=== PATIENT | male | born 1965 | race Caucasian/White ===

== ENCOUNTER → 2022-10-19 16:09 | Outpatient (BNVA) | payer BC, SELFPAY | PROVIDERS: PCP Internal Medicine; Visit Provider Psychiatry & Neurology Psychiatry ==

== ENCOUNTER 2023-03-16 17:05 | Outpatient (AMB) | payer BC, SELFPAY ==
--- NOTE | 2023-03-16 16:08 | A.OFFPSYCH_ITS ---
Intake Intake Visit Reasons: Depression Allergies shellfish derived Allergy (Unknown, Verified 10/20/22 13:16) puffy throat HPI- Psychiatric Chief Complaint: Depression HPI Narrative: Pt seen in f/u had recent appt with oncologist things generally have been going well he is on an oral form of chemotherapy. 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 Sleep okay no panic attacks able to enjoy things functions well Past Psychiatric History: hx recurrent depression Mental Status Exam Mental Status Exam Narrative: Mental Status Exam Narrative: Appearance: Casually dressed Behavior: Cooperative appropriate psychomotor: Within normal limits Speech: Normal volume and prosody Thought proccess logical and goal-directed Thought content: Future oriented no self-harming thoughts Mood: Euthymic Affect: Appropriate to mood full affect SI:denies HI:denies VH/AH:none Delusions: None Insight/judgment: Good insight and judgment Memory/cog: Intact Telehealth Telehealth Location of provider rendering services: practice address Location of patient: address on file Patient Identification confirmed using: Name, : Yes Telehealth method: video Patient verbally consented to treatment: Yes Patient informed of any privacy concerns related to visit: Yes Minutes spent on Phone/Video with Pt.: 15 Assessment and Plan Assessment & Plan (1) Major depressive disorder, recurrent, in remission, unspecified: Status: Acute Code(s): F33.40 - Major depressive disorder, recurrent, in remission, unspecified (2) CLL (chronic lymphocytic leukemia): Status: Acute Code(s): C91.10 - Chronic lymphocytic leukemia of B-cell type not having achieved remission Plan Continue Effexor 75 mg patient generally stable no relapse symptoms follow-up 4- 6 months patient call if needed Medications: Refilled venlafaxine ER (Effexor XR) 75 mg PO DAILY 90 caps 1RF Counseling and coordination of Care Diagnosis and Prognosis Counseling: Prognosis over time and Adequacy of current interventions Details: I spent [15] minutes reviewing the record, seeing the patient and documenting in the medical record. Counseling provided to the patient/caregiver as outlined below. Addressed patient/caregiver concerns regarding current medication regime including effective adherence. Addressed patient/caregiver concerns regarding diagnosis and prognosis including accuracy of diagnosis, prognosis over time, impact of diagnosis. Addressed patient/caregiver concerns regarding impact of recent stressors. [facility] Medical History (Updated 10/19/22 @ 16:58 by Laurent Bustamante MD) CLL (chronic lymphocytic leukemia) Coding Level of Care Code Tele Est Pt Level 3 (87405) Diagnoses Major depressive disorder, recurrent, in remission, unspecified F33.40 CLL (chronic lymphocytic leukemia) C91.10
== END 2023-03-16 17:06 | disposition home or self-care (01) ==
LOC: HO.HOP 17:05
PROVIDERS: PCP Internal Medicine; Visit Provider Psychiatry & Neurology Psychiatry
DX: F33.40 Major depressive disorder, recurrent, in remission, unspecified (principal); C91.10 Chronic lymphocytic leukemia of B-cell type not having achieved remission
CPT/HCPCS: 99213

== ENCOUNTER → 2023-03-16 17:05 | Outpatient (BNVA) | payer BC, SELFPAY | PROVIDERS: PCP Internal Medicine; Visit Provider Psychiatry & Neurology Psychiatry ==

== ENCOUNTER 2023-08-22 15:57 | Outpatient (AMB) | payer BC, SELFPAY ==
--- NOTE | 2023-08-22 14:46 | MHC.OFFVISPS ---
Intake Intake Visit Reasons: depression Allergies shellfish derived Allergy (Unknown, Verified 10/20/22 13:16) puffy throat Medication List - Last Reconciled 08/22/23 by Laurent Bustamante MD acalabrutinib maleate (Calquence (acalabrutinib maleate)) mg PO venlafaxine ER (Effexor XR) 75 mg PO DAILY HPI- Psychiatric Chief Complaint: depression HPI Narrative: Pt is a 58 yo male on calquence has been maint electrician shop no panic no serious depressive episodes has CLL has been doing ok with calquence no side effects with effexor had recent bout of grief after of f in law but generally stable able to enjoy things extensive friend and family supports and rastafarian supports. Tries to not let CLL intrude on his daily mental health and has been reassured by his response to Calquence Past Psychiatric History: hx recurrent depression Mental Status Exam Mental Status Exam Narrative: Mental Status Exam Narrative: Appearance: Casually dressed Behavior: Cooperative appropriate psychomotor: Within normal limits Speech: Normal volume and prosody Thought proccess logical and goal-directed Thought content: Future oriented no self-harming thoughts Mood: Euthymic Affect: Appropriate to mood full affect SI:denies HI:denies VH/AH:none Delusions: None Insight/judgment: Good insight and judgment Memory/cog: Intact Telehealth Telehealth Location of provider rendering services: practice address Location of patient: address on file Patient Identification confirmed using: Name, : Yes Telehealth method: video Patient verbally consented to treatment: Yes Patient informed of any privacy concerns related to visit: Yes Minutes spent on Phone/Video with Pt.: 20 Assessment and Plan Assessment & Plan (1) Major depressive disorder, recurrent, in remission, unspecified: Status: Acute Code(s): F33.40 - Major depressive disorder, recurrent, in remission, unspecified (2) CLL (chronic lymphocytic leukemia): Status: Acute Code(s): C91.10 - Chronic lymphocytic leukemia of B-cell type not having achieved remission Plan Continue plan of care patient stable continue Effexor no significant side effects has had prior significant depressions not easily responding to medication maintain current treatment plan Medications: Refilled venlafaxine ER (Effexor XR) 75 mg PO DAILY 90 caps 1RF venlafaxine ER (Effexor XR) 75 mg PO DAILY 90 caps 1RF Counseling and coordination of Care Details: I spent [25] minutes reviewing the record, seeing the patient and documenting in the medical record. Counseling provided to the patient/caregiver as outlined below. Addressed patient/caregiver concerns regarding current medication regime including effective adherence. Addressed patient/caregiver concerns regarding diagnosis and prognosis including accuracy of diagnosis, prognosis over time, impact of diagnosis. Addressed patient/caregiver concerns regarding impact of recent stressors. [facility] Medical History (Updated 10/19/22 @ 16:58 by Laurent Bustamante MD) CLL (chronic lymphocytic leukemia) Coding Level of Care Code Est Pt Level 4 (21589) Diagnoses Major depressive disorder, recurrent, in remission, unspecified F33.40 CLL (chronic lymphocytic leukemia) C91.10
== END 2023-08-22 15:58 | disposition home or self-care (01) ==
LOC: HO.HOP 15:57
PROVIDERS: PCP Internal Medicine; Visit Provider Psychiatry & Neurology Psychiatry
DX: F33.40 Major depressive disorder, recurrent, in remission, unspecified (principal); C91.10 Chronic lymphocytic leukemia of B-cell type not having achieved remission
CPT/HCPCS: 99214

== ENCOUNTER → 2023-08-22 15:57 | Outpatient (BNVA) | payer BC, SELFPAY | PROVIDERS: PCP Internal Medicine; Visit Provider Psychiatry & Neurology Psychiatry ==

== ENCOUNTER 2024-05-20 14:30 | Outpatient (AMB) | payer BC, SELFPAY ==
--- NOTE | 2024-05-20 14:55 | A.OFFPSYCH_ITS ---
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 Patient without relapse symptoms continues on Effexor 75 mg daily no complaints of side effects denies breakthrough symptoms. Has been taking medication for CLL which has stabilized with oral medication Past Psychiatric History: hx recurrent depression Mental Status Exam Mental Status Exam Narrative: Mental Status Exam Narrative: Appearance: Casually dressed Behavior: Cooperative appropriate psychomotor: Within normal limits Speech: Normal volume and prosody Thought proccess logical and goal-directed Thought content: Future oriented focused on treatment issues gratitude for support he gets in his life Mood: Euthymic Affect: Appropriate to mood full affect SI:denies HI:denies VH/AH:none Delusions: None Insight/judgment: Good insight and judgment Memory/cog: Intact Assessment and Plan Assessment & Plan (1) Major depressive disorder, recurrent, in remission, unspecified: Status: Acute Code(s): F33.40 - Major depressive disorder, recurrent, in remission, unspecified Plan Continue plan of care patient has been stable on venlafaxine discussed possible transition at some to PCP. Patient has had severe anxious depressions in the past Medications: Refilled venlafaxine ER 75 mg PO DAILY 90 caps 1RF venlafaxine ER (Effexor XR) 75 mg PO DAILY 90 caps 1RF Counseling and coordination of Care Details-Self Mgmt counseling: Issues related to history of depression and dealing with chronic stress of CLL ways he has to manage Details: I spent [30] minutes reviewing the record, seeing the patient and documenting in the medical record. Counseling provided to the patient/caregiver as outlined below. Addressed patient/caregiver concerns regarding current medication regime including effective adherence. Addressed patient/caregiver concerns regarding diagnosis and prognosis including accuracy of diagnosis, prognosis over time, impact of diagnosis. Addressed patient/caregiver concerns regarding impact of recent stressors. [facility] Medical History (Updated 10/19/22 @ 16:58 by Laurent Bustamante MD) CLL (chronic lymphocytic leukemia) Coding Level of Care Code Est Pt Level 4 (76776) Diagnoses Major depressive disorder, recurrent, in remission, unspecified F33.40
== END 2024-05-20 15:16 | disposition home or self-care (01) ==
LOC: HO.HOP 14:30
PROVIDERS: PCP Internal Medicine; Visit Provider Psychiatry & Neurology Psychiatry
DX: F33.40 Major depressive disorder, recurrent, in remission, unspecified (principal)
CPT/HCPCS: 99214

== ENCOUNTER → 2024-05-20 14:30 | Outpatient (BNVA) | payer BC, SELFPAY | PROVIDERS: PCP Internal Medicine; Visit Provider Psychiatry & Neurology Psychiatry ==

== ENCOUNTER 2024-10-28 14:11 | Outpatient (AMB) | payer BC, SELFPAY ==
--- NOTE | 2024-10-28 14:38 | A.OFFPSYCH_ITS ---
Intake Intake Visit Reasons: depression Allergies shellfish derived Allergy (Unknown, Verified 10/20/22 13:16) puffy throat HPI- Psychiatric Chief Complaint: depression HPI Narrative: Pt seen in f/u continues to work no ongoing fatigue has put in a n ew pool d wedding in july has been working out 3 x wk has new above grnd pool has grandkids 6-2 yo enjoys family time. Pt has been doing well generally on effexor. 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 Past Psychiatric History: hx recurrent depression Mental Status Exam Mental Status Exam Narrative: Mental Status Exam Narrative: Appearance: Casually dressed Behavior: Cooperative appropriate psychomotor: Within normal limits Speech: Normal volume and prosody Thought proccess logical and goal-directed Thought content: Future oriented focused on treatment issues gratitude for support he gets in his life Mood: Euthymic Affect: Appropriate to mood full affect SI:denies HI:denies VH/AH:none Delusions: None Insight/judgment: Good insight and judgment Memory/cog: Intact Assessment and Plan Assessment & Plan (1) Major depressive disorder, recurrent, in remission, unspecified: Status: Acute Code(s): F33.40 - Major depressive disorder, recurrent, in remission, unspecified (2) CLL (chronic lymphocytic leukemia): Status: Acute Code(s): C91.10 - Chronic lymphocytic leukemia of B-cell type not having achieved remission Plan No breakthroughs of any kind pt quite stable dealing well with cancer diagnosis social engaged patient stable on current regimen 75 mg venlafaxine no breakthrough continue plan of care . Has had severe agitated depression in the past Counseling and coordination of Care Details: I spent [] minutes reviewing the record, seeing the patient and documenting in the medical record. Counseling provided to the patient/caregiver as outlined below. Addressed patient/caregiver concerns regarding current medication regime including effective adherence. Addressed patient/caregiver concerns regarding diagnosis and prognosis including accuracy of diagnosis, prognosis over time, impact of diagnosis. Addressed patient/caregiver concerns regarding impact of recent stressors. [facility] Medical History (Updated 10/19/22 @ 16:58 by aLurent Bustamante MD) CLL (chronic lymphocytic leukemia) Coding Level of Care Code Est Pt Level 3 (01681) Diagnoses Major depressive disorder, recurrent, in remission, unspecified F33.40 CLL (chronic lymphocytic leukemia) C91.10
--- OUTSIDE RECORDS SUMMARY | 2024-10-28 16:06 | XMS_ITS | Clinical Summary ---
Author Organization [facility] [place] [address] Care Team Providers Care Data Communications Technician Name Role Phone Anna Marie Osman MD Primary Care Provider [phone] Allergies Active Allergy Reactions Criticality Noted Date Comments Bee Venom Protein (Honey Bee) 2021 Shellfish Derived 11/03/2021 Medications venlafaxine XR (EFFEXOR-XR) 75 mg 24 hr capsule Take 1 capsule (75 mg total) by mouth 1 (one) time each day. Do not crush or chew. Active acalabrutinib (Calquence) 100 mg Take 1 capsule (100 mg total) by mouth every 12 (twelve) hours 60 capsule 1 3 Active clobetasoL (TEMOVATE) 0.05 % cream Apply topically 2 (two) times a day. 3 Active acalabrutinib maleate (Calquence, acalabrutinib mal,) 100 mg tablet Take 1 tablet (100 mg total) by mouth every 12 (twelve) hours 60 tablet 5 5 Active Active Problems Problem Noted Date Diagnosed Date Bruising 06/19/2023 Altered taste 12/15/2021 Other fatigue 12/15/2021 CLL (chronic lymphocytic rubia kemia) (CMS/HCC V24, CMS/HCC V28) 11/11/2021 Infected sebaceous cyst 11/11/2021 Cervical lymphadenopathy 11/11/2021 Acute midline low back pain with bilateral sciat ica 11/11/2021 Anemia in neoplastic disease 11/11/2021 Generalized lymphadenopathy 11/11/2021 Leg cramps 11/11/2021 Anxiety 11/11/2021 Lymphoma, small lymphocytic (CMS/HCC V24, [facility]/ C V28) 11/11/2021 Night sweats 11/11/2021 Skin rash 11/11/2021 Weight loss 11/11/2021 COVID-19 11/11/2021 Smoker 11/11/2021 Encounters Date Type Department Care Team Description 08/14/2024 3:15 PM EDT Office Visit [facility] Hematology Oncology [address] [place] [address] Curry Grover MD CLL (chronic lymphocytic leukemia) ([facility] V24, [facility] V28) (Primary Dx) from Last 3 Months Surgical History Surgery Date Site/Laterality Comments APPENDECTOMY PROCEDURE:APPENDECTOMY VASECTOMY PROCEDURE:VASECTOMY COLONOSCOPY PROCEDURE:COLONOSCOPY Medical History Medical History Date Comments Chronic lymphocytic leukemia ([facility] V24, [facility] V28) DX:Chronic lymphocytic [facility] killian (HCC) Elevated WBCs DX:Elevated WBCs Family History Medical History Relation Name Comments Cancer Father Relation Name Status Comments Father Social History Tobacco Use Types Packs/Day Years Used Date Smoking Tobacco: Every Day Cigarettes Smokeless Tobacco: Never Tobacco Cessation:Ready to Q uit: Not Asked; Counseling Given: Not Answered Alcohol Use Standard Drinks/Week Comments Yes 0 (1 standard drink = 0.6 oz pur e alcohol) Sex and Gender Information Value Date Recorded Sex Assigned at Not on file Legal Sex Male 12:59 PM EDT Gender Identity Not on file Sexual Orientation Not on file Obstetrics History Last Filed Vital Signs Vital Sign Reading Time Taken Comments Blood Pressure 107/69 08/14/2024 3:06 PM EDT Pulse 89 08/14/2024 3:06 PM EDT Temperature 36.7 ??C (98.1 ??F) 08/14/2024 3:06 PM ED T Respiratory Rate - - Oxygen Saturation 97% 08/14/2024 3:06 PM EDT Inhaled Oxygen Concentration - - Weight 66.8 kg (147 lb 3.2 oz) 08/14/2024 3:06 P M EDT Height 167.6 cm (5' 6 ) 09/20/2023 3:42 PM EDT Body Mass Index 23.76 09/20/2023 3:42 PM EDT Plan of Treatment Upcoming Encounters Date Type Department Care Team (Late st Contact Info) Description 11/14/2024 3:45 PM EDT Office Visit [facility] Hematology Oncology [address] [place] [address] Curry Grover MD [address] [place] [address] Health Maintenance Due Date Last Done Comments Pneumococcal Vaccine: 50+ Ye ars (1 of 2 - PCV) 02/19/1983 Pneumococcal Vaccine: Pediat rics (0 to 5 Years) and At-Risk Patients (6 to 64 Years) (1 of 2 - PCV) 02/19/1983 Zoster Vaccines (1 of 2) 02/19/1983 COVID-19 Vaccine (2 - Pfizer risk series) 10/12/2020 09/21/2020 Cholesterol Screening (Lipid Panel) 11/02/2021 Colorectal Cancer Screening: Colonoscopy 11/02/2021 Depression Screening 11/02/2021 HIV Screening 11/02/2021 Hepatitis C Screening 11/02/2021 Social Influencers of Health Screening 11/02/2021 RSV Immunization Adult Patie nts (1 - Risk 60-74 years 1-dose series) 2024 Influenza Vaccine (Season Ended) 2025 02/14/20 DTaP,Tdap,and Td Vaccines (2 - Td or Tdap) 01/28/2029 01/28/2019 HIB Vaccines Aged Out No longer eligi ble based on patient's age to complete this topic HPV Vaccines Aged Out No longer eligi ble based on patient's age to complete this topic Hepatitis A Vaccines Aged Out No long er eligible based on patient's age to complete this topic Hepatitis B Vaccines Aged Out No long er eligible based on patient's age to complete this topic IPV Vaccines Aged Out No longer eligi ble based on patient's age to complete this topic MMR Vaccines Aged Out No longer eligi ble based on patient's age to complete this topic Meningococcal ACWY Vaccine Aged Out N o longer eligible based on patient's age to complete this topic Meningococcal B Vaccine Aged Out No l onger eligible based on patient's age to complete this topic RSV Immunization Patients Un vikki 20 months Aged Out No longer eligible b ased on patient's age to complete this topic Varicella Vaccines Aged Out No longer eligible based on patient's age to complete this topic Procedures Procedure Name Priority Date/Time Associated Diagnosis Comments CBC WITH AUTO DIFFERENTIAL Routine 09/19/2024 3:12 PM EDT CLL (chronic lymphocytic leukemia) (CMS/HCC V24, CMS/HCC V28) CBC AND DIFFERENTIAL Routine 09/19/2024 3:12 PM EDT CLL (chronic lymphocytic leukemia) (CMS/HCC V24, CMS/HCC V28) COMPREHENSIVE METABOLIC PANEL Routine 09/19/2024 3:12 PM EDT CLL (chronic lymphocytic leukemia) (CMS/HCC V24, CMS/HCC V28) LACTATE DEHYDROGENASE Routine 09/19/2024 3:12 PM EDT CLL (chronic lymphocytic leukemia) (CMS/HCC V24, CMS/HCC V28) IMMUNOGLOBULIN IGG Routine 09/19/2024 3: 12 PM EDT CLL (chronic lymphocytic leukemia) (CMS/HCC V24, CMS/HCC V28) MANUAL DIFFERENTIAL - SYSMEX WAM Routine 08/09/2024 2:59 PM EDT CLL (chronic lymphocytic leukemia) (CMS/HCC V24, CMS/HCC V28) CBC WITH AUTO DIFFERENTIAL Routine 08/09/2024 2:59 PM EDT CLL (chronic lymphocytic leukemia) (CMS/HCC V24, CMS/HCC V28) CBC AND DIFFERENTIAL Routine 08/09/2024 2:59 PM EDT CLL (chronic lymphocytic leukemia) (CMS/HCC V24, CMS/HCC V28) COMPREHENSIVE METABOLIC PANEL Routine 08/09/2024 2:59 PM EDT CLL (chronic lymphocytic leukemia) (CMS/HCC V24, CMS/HCC V28) LACTATE DEHYDROGENASE Routine 08/09/2024 2:59 PM EDT CLL (chronic lymphocytic leukemia) (CMS/HCC V24, CMS/HCC V28) IMMUNOGLOBULIN IGG Routine 08/09/2024 2: 59 PM EDT CLL (chronic lymphocytic leukemia) ([facility] V24, [facility] V28) from Last 3 Months Results * (ABNORMAL) CBC auto differential (09/19/2024 3:12 PM EDT) Only the most recent of2 resultswithin the time period is included. WBC 57.1(HH) 4.8 - 10.8 K/mcL LAB [facility] RBC 4.50 4.50 - 5.50 M/mcL LAB HEMETOLOGY METHOD 09/19/2024 8:42 PM [facility] Hemoglobin 13.0(L) 13.5 - 17.5 g/dL LAB HEMETOLOGY METHOD 09/19/2024 8:42 PM [facility] Hematocrit 40.2(L) 42.0 - 54.0 % LAB HEMETOLOGY METHOD 09/19/2024 8:42 PM [facility] MCV 90.3 79.0 - 98.0 FL LAB HEMETOLOGY METHOD 09/19/2024 8:42 PM [facility] MCH 29.2 27.0 - 32.0 pcg LAB HEMETOLOGY METHOD 09/19/2024 8:42 PM [facility] MCHC 32.3 32.0 - 37.0 g/dL LAB HEMETOLOGY METHOD 09/19/2024 8:42 PM [facility] RDW 14.2 11.0 - 15.0 % LAB HEMETOLOGY METHOD 09/19/2024 8:42 PM [facility] Platelets 273 130 - 400 K/mcL LAB HEMETOLOGY METHOD 09/19/2024 8:42 PM [facility] MPV 10.1 7.0 - 11.0 FL LAB HEMETOLOGY METHOD 09/19/2024 8:42 PM [facility] NRBC 0.0 <1.0 % LAB HEMETOLOGY METHOD 09/19/2024 8:42 PM [facility] NRBC Absolute 0.00 <0.10 K/mcL LAB HEMETOLOGY METHOD 09/19/2024 8:42 PM [facility] Neutrophils Relative 9.7 % LAB HEMETOLOGY METHOD 09/19/2024 8:42 PM [facility] Comment:This is an appended report. These results have been appended to a previously preliminary verified report. Lymphocytes Relative 85.2 % LAB HEMETOLOGY METHOD 09/19/2024 8:42 PM [facility] Comment:This is an appended report. These results have been appended to a previously preliminary verified report. Monocytes Relative 3.9 % LAB HEMETOLOGY METHOD 09/19/2024 8:42 PM [facility] Comment:This is an appended report. These results have been appended to a previously preliminary verified report. Eosinophils Relative 0.5 % LAB HEMETOLOGY METHOD 09/19/2024 8:42 PM [facility] Comment:This is an appended report. These results have been appended to a previously preliminary verified report. Basophils Relative 0.4 % LAB HEMETOLOGY METHOD 09/19/2024 8:42 PM [facility] Comment:This is an appended report. These results have been appended to a previously preliminary verified report. Immature Granulocytes Relative 0.3 % LAB HEMETOLOGY METHOD 09/19/2024 8:42 PM [facility] Comment:This is an appended report. These results have been appended to a previously preliminary verified report. Neutrophils Absolute 5.57 1.50 - 7.00 K/mcL LAB HEMETOLOGY METHOD 09/19/2024 8:42 PM [facility] Comment:This is an appended report. These results have been appended to a previously preliminary verified report. Lymphocytes Absolute 48.65(H) 1.00 - 5.00 K/mcL LAB HEMETOLOGY METHOD 09/19/2024 8:42 PM EDT [facility] Comment:This is an appended report. These results have been appended to a previously preliminary verified report. Monocytes Absolute 2.25(H) 0.20 - 1.00 K/mcL LAB [facility] 09/19/2024 8:42 PM EDT [facility] Comment:This is an appended report. These results have been appended to a previously preliminary verified report. Eosinophils Absolute 0.26 0.00 - 0.50 K/mcL LAB [facility] 09/19/2024 8:42 PM EDT [facility] Comment:This is an appended report. These results have been appended to a previously preliminary verified report. Basophils Absolute 0.23(H) 0.00 - 0.20 K/[facility] 09/19/2024 8:42 PM EDT [facility] Comment:This is an appended report. These results have been appended to a previously preliminary verified report. Immature Granulocytes Absolute 0.15(H) 0.00 - 0.03 K/[facility] 09/19/2024 8:42 PM EDT [facility] Comment:This is an appended report. These results have been appended to a previously preliminary verified report. Blood Venous blood specimen / Unknown Venipuncture / Unknown 09/19/2024 3:12 PM EDT 09/19/2024 4:36 PM EDT us Curry Grover MD LAB BLOOD ORDERABLE S Final Result [facility] [address] [place] [address], * Lactate dehydrogenase (09/19/2024 3:12 PM EDT) Only the most recent of2 resultswithin the time period is included. LDH 123 120 - 246 unit/L LAB CHEMISTRY METHOD 09/19/2024 5:51 PM EDT [facility] Blood Venous blood specimen / Unknown Venipuncture / Unknown 09/19/2024 3:12 PM EDT 09/19/2024 4:36 PM EDT us Curry Grover MD LAB BLOOD ORDERABLE S Final Result Performing Organization Address [facility] Co de Phone Number [facility] [address] [place] [address], [place] [phone] * (ABNORMAL) Immunoglobulin IgG (09/19/2024 3:12 PM EDT) Only the most recent of2 resultswithin the time period is included. Total IgG 512(L) 549 - 1,584 mg/dL LAB CHEMISTRY METHOD 09/19/2024 5:51 PM EDT [facility] Blood Venous blood specimen / Unknown Venipuncture / Unknown 09/19/2024 3:12 PM EDT 09/19/2024 4:36 PM EDT us Curry Grover MD LAB BLOOD ORDERABLE S Final Result Performing Organization Address [facility]/ZIP Co de Phone Number [facility] [address] [place] [address], [place] [phone] * (ABNORMAL) Comprehensive metabolic panel (09/19/2024 3:12 PM EDT) Only the most recent of2 resultswithin the time period is included. Sodium 136 133 - 145 mmol/L LAB CHEMISTRY METHOD 09/19/2024 5:51 PM EDT [facility] Potassium 3.9 3.5 - 5.5 mmol/L LAB CHEMISTRY METHOD 09/19/2024 5:51 PM [facility] Chloride 107 96 - 110 mmol/L LAB CHEMISTRY METHOD 09/19/2024 5:51 PM [facility] CO2 24 21 - 32 mmol/L LAB CHEMISTRY METHOD 09/19/2024 5:51 PM [facility] Anion Gap 5 3 - 11 LAB CHEMISTRY METHOD 09/19/2024 5:51 PM [facility] Glucose 129(H) 70 - 100 mg/dL LAB CHEMISTRY METHOD 09/19/2024 5:51 PM [facility] BUN 22 5 - 25 mg/dL LAB CHEMISTRY METHOD 09/19/2024 5:51 PM [facility] Creatinine 1.11 0.70 - 1.30 mg/dL LAB CHEMISTRY METHOD 09/19/2024 5:51 PM [facility] eGFR 76 >=60 mL/min/1. 73m2 LAB CHEMISTRY METHOD 09/19/2024 5:51 PM [facility] Comment:Calculation based on the??Chronic Kidney Disease Epidemiology Collaboration (CKD-EPI) equation refit??without adjustment for race. BUN/Creatinine Ratio 19.8 LAB CHEMISTRY METHOD 09/19/2024 5:51 PM [facility] Calcium 9.2 8.5 - 10.5 mg/dL LAB CHEMISTRY METHOD 09/19/2024 5:51 PM [facility] AST (SGOT) 9(L) 10 - 42 unit/L LAB CHEMISTRY METHOD 09/19/2024 5:51 PM [facility] ALT (SGPT) 15 10 - 60 unit/L LAB CHEMISTRY METHOD 09/19/2024 5:51 PM [facility] Alkaline Phosphatase 71 42 - 121 unit/L LAB CHEMISTRY METHOD 09/19/2024 5:51 PM [facility] Total Protein 6.3 6.0 - 8.0 g/dL LAB CHEMISTRY METHOD 09/19/2024 5:51 PM EDT [facility] Albumin 3.9 3.2 - 5.0 g/dL LAB CHEMISTRY METHOD 09/19/2024 5:51 PM EDT [facility] Total Bilirubin 0.4 0.0 - 1.4 mg/dL LAB CHEMISTRY METHOD 09/19/2024 5:51 PM EDT [facility] Blood Venous blood specimen / Unknown Venipuncture / Unknown 09/19/2024 3:12 PM EDT 09/19/2024 4:36 PM EDT us Curry Grover MD LAB BLOOD ORDERABLE S Final Result [facility] [address] [place] [address], [place] [phone] * (ABNORMAL) Manual differential (08/09/2024 2:59 PM EDT) Neutrophils % 8.0 % LAB HEMETOLOGY METHOD 08/09/2024 6:32 PM EDT [facility] Lymphocytes % 88.0 % LAB HEMETOLOGY METHOD 08/09/2024 6:32 PM EDT [facility] Monocytes % 4.0 % LAB HEMETOLOGY METHOD 08/09/2024 6:32 PM EDT [facility] Eosinophils % 0.0 % LAB HEMETOLOGY METHOD 08/09/2024 6:32 PM EDT [facility] Basophils % 1.0 % LAB HEMETOLOGY METHOD 08/09/2024 6:32 PM EDT [facility] Neutrophils Absolute Manual 4.94 1.50 - 7.00 K/mcL LAB HEMETOLOGY METHOD 08/09/2024 6:32 PM EDT [facility] Lymphocytes Absolute 54.38(H) 1.00 - 5.00 K/mcL LAB HEMETOLOGY METHOD 08/09/2024 6:32 PM EDT [facility] Monocytes Absolute Manual 2.47(H) 0.20 - 1.00 K/mcL LAB HEMETOLOGY METHOD 08/09/2024 6:32 PM EDT [facility] Eosinophils Absolute Manual 0.00 0.00 - 0.50 K/mcL LAB HEMETOLOGY METHOD 08/09/2024 6:32 PM EDT [facility] Basophils Absolute Manual 0.62(H) 0.00 - 0.20 K/mcL LAB HEMETOLOGY METHOD 08/09/2024 6:32 PM EDT [facility] Rbc Morphology Present( A) Consistent with indices, Normal for LAB HEMETOLOGY METHOD 08/09/2024 6:32 PM EDT [facility] Comment:RBC: Morphology agre es with CBC Platelet Morphology - WAM See Note(A) Normal LAB HEMETOLOGY METHOD 08/09/2024 6:32 PM EDT [facility] Comment:PLT: Normal Blood Venous blood specimen / Unknown Venipuncture / Unknown 08/09/2024 2:59 PM EDT 08/09/2024 4:29 PM EDT [facility] LAB BLOOD ORDERABLE S Final Result [facility] [address] [place] [address], from Last 3 Months Insurance [facility] Care Teams Data Communications Technician Relationship Specialty Start Date End Date Anna Marie Osman MD PCP - General Internal Medicine 01/07/19
== END 2024-10-28 16:03 | disposition home or self-care (01) ==
LOC: HO.HOP 14:11
PROVIDERS: PCP Internal Medicine; Visit Provider Psychiatry & Neurology Psychiatry
DX: F33.40 Major depressive disorder, recurrent, in remission, unspecified (principal); C91.10 Chronic lymphocytic leukemia of B-cell type not having achieved remission
CPT/HCPCS: 99213

== ENCOUNTER 2025-03-24 14:30 | Outpatient (AMB) | payer BC, SELFPAY ==
--- NOTE | 2025-03-24 15:16 | MHC.OFFVISPS ---
Intake Intake Visit Reasons: depression Allergies shellfish derived Allergy (Unknown, Verified 10/20/22 13:16) puffy throat Medication List - Last Reconciled 03/24/25 by Laurent Bustamante MD acalabrutinib maleate (Calquence (acalabrutinib maleate)) mg PO venlafaxine ER (Effexor XR) 75 mg PO DAILY 90 days HPI- Psychiatric Chief Complaint: depression HPI Narrative: Patient seen psychiatric follow-up. Patient is a 60-year-old male with a history of severe agitated depression who has been stable for a number of years on venlafaxine. Patient has been managing issues related to chronic leukemia which is being treated in has been relatively in check for a number of years. Patient's mood stable his jainism anel has been quite helpful for him his family is very supportive. 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 Past Psychiatric History: hx recurrent depression Mental Status Exam Mental Status Exam Narrative: Narrative: Mental Status Exam Narrative: Appearance: Casually dressed Behavior: Cooperative appropriate psychomotor: Within normal limits Speech: Normal volume and prosody Thought proccess logical and goal-directed Thought content: Future oriented focused on treatment issues gratitude ongoing daughter getting Mood: Euthymic Affect: Appropriate to mood full affect SI:denies HI:denies VH/AH:none Delusions: None Insight/judgment: Good insight and judgment Memory/cog: Intact Assessment and Plan Assessment & Plan (1) Major depressive disorder, recurrent, in remission, unspecified: Status: Acute Code(s): F33.40 - Major depressive disorder, recurrent, in remission, unspecified (2) CLL (chronic lymphocytic leukemia): Status: Acute Code(s): C91.10 - Chronic lymphocytic leukemia of B-cell type not having achieved remission Plan Patient has appropriate emotional resources manages chronic stress related toward family and his medical condition. Has been stable on venlafaxine thoughts of side effects or concerns. Follow-up to 3 months may be able to be managed by his primary care physician if needed Medications: Refilled venlafaxine ER (Effexor XR) 75 mg PO DAILY 90 caps 1RF 90 days Counseling and coordination of Care Medication management counseling: Effectiveness Diagnosis and Prognosis Counseling: Adequacy of current interventions Details: I spent [30] minutes reviewing the record, seeing the patient and documenting in the medical record. Counseling provided to the patient/caregiver as outlined below. Addressed patient/caregiver concerns regarding current medication regime including effective adherence. Addressed patient/caregiver concerns regarding diagnosis and prognosis including accuracy of diagnosis, prognosis over time, impact of diagnosis. Addressed patient/caregiver concerns regarding impact of recent stressors. [facility], [facility] Medical History (Updated 10/19/22 @ 16:58 by Laurent Bustamante MD) CLL (chronic lymphocytic leukemia) Coding Level of Care Code Est Pt Level 4 (45236) Diagnoses Major depressive disorder, recurrent, in remission, unspecified F33.40 CLL (chronic lymphocytic leukemia) C91.10
== END 2025-03-24 15:32 | disposition home or self-care (01) ==
LOC: HO.HOP 14:30
PROVIDERS: PCP Internal Medicine; Visit Provider Psychiatry & Neurology Psychiatry
DX: F33.40 Major depressive disorder, recurrent, in remission, unspecified (principal); C91.10 Chronic lymphocytic leukemia of B-cell type not having achieved remission
CPT/HCPCS: 99214